=== PATIENT | female | born 1990 | race Caucasian/White ===

== ENCOUNTER 2018-02-16 11:42 | Emergency (ER) | payer MEDICAID, OTHER ==
[2018-02-16] MEDS ORDERED: ONDANSETRON 4 MG TAB.RAPDIS PO ONE (11:59)
[2018-02-16] MEDS ORDERED: RINGERS SOLUTION,LACTATED 1,000 ML IV ONE (11:59)
--- NOTE | 2018-02-16 12:02 | ER Document Report ---
ED Medical Screen (RME) - General Chief Complaint: Nausea/Vomiting Stated Complaint: WEAKNESS/URINE ISSUES Time Seen by Provider: 02/16/18 11:55 Notes: RAPID MEDICAL EVALUATION DISCLOSURE I have seen this patient as part of a Rapid Medical Evaluation and, if applicable, placed any initially appropriate orders. The patient will be seen and fully evaluated, including a full history and physical exam, by a provider ( in Main ED or Fast Track) when a room becomes available. 27-year-old female approximately 15 weeks gestation here with complaints of several days nausea vomiting bloody stools (described as black). She does not have any medication at home that she has been using. She has a history of hemorrhoids but no GI bleeding. She does not have any abdominal pain. She has vaginal discharge but states it has been her normal discharge throughout her . She has also been feeling depressed for several weeks and having thoughts of suicide but reports she does not have a plan and does not feel she would go through with it. She feels this way due to her "home life". TRAVEL OUTSIDE OF THE [place] IN LAST 30 DAYS: No - Related Data Allergies/Adverse Reactions: No Known Allergies Allergy (Unverified 05/17/15 20:36) Past Medical History Renal/ Medical History: Reports: Hx Ovarian Cysts Musculoskeltal Medical History: Reports Hx Musculoskeletal Deformity Psychiatric Medical History: Reports: Hx Bipolar Disorder, Hx Depression Past Surgical History: Reports: Hx Dilation and Curettage, Hx Inguinal Hernia, Hx Oral Surgery - Immunizations Immunizations up to date: Yes Hx Diphtheria, Pertussis, Tetanus Vaccination: Yes Physical Exam - Vital signs Vitals: Temp Pulse Resp BP Pulse Ox 98.7 F 85 18 124/74 97 02/16/18 11:48 02/16/18 11:48 02/16/18 11:48 02/16/18 11:48 02/16/18 11:48 Course - Vital Signs Vital signs: Temp Pulse Resp BP Pulse Ox 98.7 F 85 18 124/74 97 02/16/18 11:48 02/16/18 11:48 02/16/18 11:48 02/16/18 11:48 02/16/18 11:48 Doctor's Discharge - Discharge Referrals: L[facility] MD [Primary Care Provider] - Follow up as needed
[2018-02-16 12:48] LABS: ABSOLUTE EOSINOPHILS # (AUTO) 0.1 10^3/uL (0.0-0.6); ABSOLUTE LYMPHOCYTES (AUTO) 2.5 10^3/uL (0.5-4.7); ABSOLUTE MONOCYTES (AUTO) 0.6 10^3/uL (0.1-1.4); ABSOLUTE NEUT (AUTO) 8.2 10^3/uL (1.7-8.2); BASOPHILS % (AUTO) 0.3 % (0-2); EOSINOPHILS % (AUTO) 0.5 % (0-6); HEMATOCRIT 39.6 % (36.0-47.0); HEMOGLOBIN 14.4 g/dL (12.0-15.5); LYMPHOCYTES % (AUTO) 21.9 % (13-45); MEAN CORPUSCULAR HGB CONC 36.3 g/dL (32.0-36.0); MEAN CORPUSCULAR VOLUME 88 fl (80-97); MONOCYTES % (AUTO) 5.1 % (3-13); PLATELET COUNT 210 10^3/uL (150-450); SEGMENTED NEUTROPHILS % (AUTO) 72.2 % (42-78); TOTAL CELLS COUNTED % (AUTO) 100 %; WHITE BLOOD COUNT 11.4 10^3/uL (4.0-10.5)
[2018-02-16 13:02] LABS: ALANINE AMINOTRANSFERASE 15 U/L (9-52); ALBUMIN 4.2 g/dL (3.5-5.0); ALKALINE PHOSPHATASE 56 U/L (38-126); ANION GAP 10 (5-19); ASPARTATE AMINO TRANSFERASE 19 U/L (14-36); BILIRUBIN,DIRECT 0.3 mg/dL (0.0-0.4); BILIRUBIN,TOTAL 0.5 mg/dL (0.2-1.3); BLOOD UREA NITROGEN 11 mg/dL (7-20); CALCIUM 9.6 mg/dL (8.4-10.2); CARBON DIOXIDE 25 mmol/L (22-30); CHLORIDE 104 mmol/L (98-107); GLUCOSE 81 mg/dL (75-110); POTASSIUM 3.9 mmol/L (3.6-5.0); SODIUM 139.4 mmol/L (137-145); TOTAL PROTEIN 7.2 g/dL (6.3-8.2)
[2018-02-16 13:04] LABS: ACETAMINOPHEN < 10 ug/mL (10-30); ALCOHOL < 10 mg/dL (NONE DETECTED); SALICYLATE < 1.0 mg/dL (2.0-20.0)
[2018-02-16 15:07] LABS: APPEARANCE,URINE CLEAR; BILIRUBIN,URINE NEGATIVE (NEGATIVE); COLOR,URINE YELLOW; GLUCOSE, URINE NEGATIVE (NEGATIVE); KETONES,URINE 20 mg/dL (NEGATIVE); LEUKOCYTE ESTERASE,URINE MODERATE (NEGATIVE); NITRITE,URINE NEGATIVE (NEGATIVE); PROTEIN,URINE NEGATIVE (NEGATIVE); URINE SPECIFIC GRAVITY 1.021; UROBILINOGEN,URINE NEGATIVE mg/dL (<2.0)
[2018-02-16 15:28] LABS: URINE AMPHETAMINES SCREEN NEGATIVE; URINE BARBITURATES SCREEN NEGATIVE; URINE BENZODIAZEPINES SCREEN NEGATIVE; URINE COCAINE SCREEN NEGATIVE; URINE MARIJUANA (THC) SCREEN NEGATIVE; URINE METHADONE SCREEN NEGATIVE; URINE PHENCYCLIDINE SCREEN NEGATIVE
--- NOTE | 2018-02-16 15:47 | PSYCHOLOGICAL NOTE ---
Psych Note - Psych Note Psych Note: Reason for consult: Depression and suicidal ideation ( passive) Contact Permissions: None Eval: 3:05 pm Final Disposition: 4:00 pm Patient is a 27-year-old female. Patient reports that she was aware psych was going to come visit her. Patient reports that she just has a lot of stress at home due to living with her ex-boyfriend. Patient reports prior to finding out she was they were only dating for a short while then they broke up , following their break up 3 days later she found out she was . Patient reports that she lives in his home and recently (Thursday) he told her he hated her and made her move out of his bedroom and into a small bedroom in the house. Patient reports that they are going to a counseling center to try to work things out however he has been very demeaning telling her that everything is her fault and stating he does not want to be around her. Patient reports that she then told him she was going to go to [place] to live with her mom and get employment there. Patient reports that her boyfriend then said that she would be making the baby grow up empty without a father. Patient reports that the boyfriend wants to be a father but does not want to be with her and she feels if she sticks around and he sees her belly getting bigger that he will want to be with her, and when he sees the baby that he would want to work things out. Patient reports that her boyfriend is seeing his ex- girlfriend, and cheating on her. Patient reports that she is just confused because yesterday he was cuddling her and kissing her belly but then says they are not together. Patient reports she is a [facility] patient and was on a lot of medications for her bipolar but was weaned off of everything but Latuda. Patient reports Latuda then made her vomit so she was given Vistaril 10 mg daily. Patient reports she does not take that either because she ran out and it is not good for the baby. Patient reports that Dr. Ragini Anderson prescribes her medications. Patient reports she is taking parenting classes as well. Patient reports that she does have passive thoughts from time to time to harm herself but says that thoughts of her mom stops her from acting out self- harm. Patient reports she does not have suicidal ideation or homicidal ideation ideation at this time. Patient reports she has never attempted suicide. Patient reports that she is afraid of telling her boyfriend her mental health history like being bipolar and that she is currently feeling in a low point right now because she is afraid he will try to take the baby when the baby is born. Patient reports that when she was a teenager in 2003 her mother involuntarily committed her because she was having a lot of panic attacks and did not want to get help. Patient reports 2 other times she went inpatient psych for her panic attacks, stating these were voluntarily done to address anxiety. Patient reports that she gets anxious because she does not know if he is going to be nice to her or if he is having a bad day if he is going to be talking down to her. Patient reports she knows what she has to do but does not feel like she can because she does not want to leave him. Diagnosis: Per history ( patient report) 296.80 (F31.9) bipolar Disorder unspecified episode Medication recommendations made by [facility] contracted psychiatric provider Dr. Federico Md. includes: None Impression/Plan: Patient is psychiatrically cleared from acute services. Patient denied SI/HI. Clinician observed patient currently has a lot of environmental stresses including living in a home with her baby's father but not being in an intimate relationship. Clinician observed patient reports she has anxiety but is currently and unable to take medications she was previously prescribed prior to becoming . Clinician observed patient explained she is depressed however she is not tearful, has appropriate affect, mood ( during assessment) , and future oriented thinking. Clinician observed patient is scheduled for a counseling session at the local center ( per her report). In addition, recommendation for patient to go to [facility] as a walk - in to discuss medication concerns as they are the patient's clinical home. Attending physician in agreement with plan and disposition. Consulted with Dr. Tracy regarding management and care of patient.
[2018-02-16] MEDS ORDERED: NORMAL SALINE 1000 ML 1,000 ML IV ONE (15:55)
[2018-02-16] MEDS ORDERED: NITROFURANTOIN MONOHYD/M-CRYST 100 MG CAPSULE PO ONE (15:56)
[2018-02-16 17:44] VITALS: BP 104/62
--- NOTE | 2018-02-16 17:46 | RADIOLOGY REPORT (SQ) ---
EXAM DESCRIPTION: U/S OB 14+ TRNABD 1GES W/O DOP COMPLETED DATE/TIME: 02/16/2018 5:38 pm REASON FOR STUDY: pelvic pain COMPARISON: None. TECHNIQUE: Static and Dynamic grayscale imaging performed of gravid uterus using transabdominal appr oach. Additional selected color Doppler and spectral images recorded. All stored on PACS. LIMITATIONS: None. FINDINGS: EGA: 15 weeks 0 days. DALIA: 08/10/2018. DENA: Adequate amount. PLACENTA: Anterior. PRESENTATION: Variable ANATOMY: HEART RATE: 147 beats per minute. MATERNAL ADNEXA: Left ovary normal curve right ovary not visualized. CERVICAL LENGTH: 3.7 cm Closed. OTHER: No other significant finding. IMPRESSION: LIVING INTRAUTERINE . ESTIMATED GESTATIONAL AGE 15 WEEKS 0 DAYS. NO VISUALIZED ANOMALIES. Trimester of : Second trimester - 13 weeks 1 day to 27 weeks 6 days. TECHNICAL DOCUMENTATION: JOB ID: [id number] [employer]- All Rights Reserved Reading location - IP/workstation name: [email or web address]
[2018-02-16] MEDS ORDERED: LIDOCAINE 1% INJ-PF (10 MG/ML) 30 ML SDV INJ ONE (17:53)
--- NOTE | 2018-02-16 17:53 | ER Document Report ---
ED GI/ - General Chief Complaint: Nausea/Vomiting Stated Complaint: WEAKNESS/URINE ISSUES Time Seen by Provider: 02/16/18 11:55 Mode of Arrival: Ambulatory Information source: Patient Notes: Patient is a 27 year old female approximately 15 weeks who presents to the ER today for 2 weeks of nausea without vomiting, some lightheadedness and not been able to take in any fluids. Patient states that has worsened over the past 2 days. She is taking her vitamins. She denies any vaginal bleeding or abnormal vaginal discharge, admits to some lower abdominal pain in the center of her abdomen. She denies any burning with urination, fevers or chills. She denies any syncope. She last had an ultrasound [facility] 1 month ago that was normal. Apparently she also told the [facility] nurse that she has considered hurting herself. For this reason a psych consult was placed at triage and performed before a had time to evaluate the patient. Psych cleared the patient as she is not suicidal or homicidal, just not taking her bipolar medications as she is and sometimes feels depressed. She states "I would never hurt myself, I am too excited about the baby and I have a good support system with my mom." TRAVEL OUTSIDE OF THE [place] IN LAST 30 DAYS: No - HPI heart tones (bpm): 145 - Related Data Allergies/Adverse Reactions: No Known Allergies Allergy (Unverified 05/17/15 20:36) Past Medical History - General Information source: Patient - Social History Smoking Status: Never Smoker Chew tobacco use (# tins/day): No Frequency of alcohol use: None Drug Abuse: None Family History: Arthritis, CAD, CVA, DM, Hyperlipidemia, Hypertension Patient has suicidal ideation: Yes - states she wouldn't act on it Patient has homicidal ideation: No Renal/ Medical History: Reports: Hx Ovarian Cysts. Denies: Hx Peritoneal Dialysis Musculoskeltal Medical History: Reports Hx Musculoskeletal Deformity Psychiatric Medical History: Reports: Hx Bipolar Disorder, Hx Depression Past Surgical History: Reports: Hx Dilation and Curettage, Hx Inguinal Hernia, Hx Oral Surgery - Immunizations Immunizations up to date: Yes Hx Diphtheria, Pertussis, Tetanus Vaccination: Yes Review of Systems - Review of Systems Constitutional: No symptoms reported EENT: No symptoms reported Cardiovascular: No symptoms reported Respiratory: No symptoms reported Gastrointestinal: See HPI Genitourinary: No symptoms reported Female Genitourinary: See HPI Musculoskeletal: No symptoms reported Skin: No symptoms reported Hematologic/Lymphatic: No symptoms reported Neurological/Psychological: See HPI Physical Exam - Vital signs Vitals: Temp Pulse Resp BP Pulse Ox 98.7 F 85 20 124/74 97 02/16/18 11:48 02/16/18 11:48 02/16/18 11:48 02/16/18 11:48 02/16/18 11:48 - Notes Notes: PHYSICAL EXAMINATION: GENERAL: Well-appearing and in no acute distress. HEAD: Atraumatic, normocephalic. EYES: Pupils equal round and reactive to light, extraocular movements intact, sclera anicteric, conjunctiva are normal. ENT: ear canals without erythema or foreign body, TMs pearly quiñonez with good bony landmarks, nares patent, oropharynx clear without exudates. Moist mucous membranes. NECK: Normal range of motion, supple without lymphadenopathy LUNGS: CTAB and equal. No wheezes rales or rhonchi. HEART: Regular rate and rhythm without murmurs ABDOMEN: Soft, moderate suprapubic tenderness. No guarding, no rebound BACK: no vertebral tenderness, normal ROM GI/: no CVA tenderness EXTREMITIES: Normal range of motion, no pitting edema. No cyanosis. NEUROLOGICAL: Cranial nerves grossly intact. Normal sensory/motor exams. PSYCH: Normal mood, normal affect. SKIN: Warm, Dry, normal turgor, no rashes or lesions noted Course - Re-evaluation Re-evalutation: 02/16/18 19:10 heart tones are 147, ultrasound reveals a normal intrauterine of approximately 15 weeks gestation without acute abnormality. Lab work is unremarkable today except for some leukocytes and 6 white blood cells on her urinalysis. Patient be placed on Macrobid for increased risk of miscarriage with untreated urinary tract infection. Patient given 2 L of IV fluids and feels much better, wanting to eat after Zofran was given, able to hold down crackers and geneva deana. Patient follow-up with her [facility]. I will send her home on Macrobid and provide her with Reglan to try first and Zofran if the Reglan does not help. - Vital Signs Vital signs: Temp Pulse Resp BP Pulse Ox 98.8 F 77 18 104/62 99 02/16/18 17:43 02/16/18 17:43 02/16/18 17:43 02/16/18 17:43 02/16/18 17:43 - Laboratory Result Diagrams: 02/16/18 12:19 02/16/18 12:19 Laboratory results interpreted by me: 02/16/18 02/16/18 02/16/18 12:19 12:19 12:19 WBC 11.4 H MCHC 36.3 H Serum HCG, Qual POSITIVE H Urine Ketones Urine Blood Ur Leukocyte Esterase Urine Ascorbic Acid Salicylates < 1.0 L Acetaminophen < 10 L 02/16/18 14:40 WBC MCHC Serum HCG, Qual Urine Ketones 20 H Urine Blood SMALL H Ur Leukocyte Esterase MODERATE H Urine Ascorbic Acid 20 H Salicylates Acetaminophen Discharge - Discharge Clinical Impression: related nausea, antepartum UTI (urinary tract infection) Qualifiers: Urinary tract infection type: site unspecified Hematuria presence: without hematuria Qualified Code(s): N39.0 - Urinary tract infection, site not specified Condition: Stable Disposition: HOME, SELF-CARE Instructions: Nitrofurantoin ([facility]), Urinary Tract Infection ([facility]) Additional Instructions: Return immediately for any new or worsening symptoms. Follow up with [facility], call tomorrow to make followup appointment. Prescriptions: Ondansetron [Zofran Odt 4 mg Tablet] 1 - 2 tab PO Q4HP PRN #30 tab.rapdis PRN Reason: Metoclopramide HCl [Reglan 10 mg Tablet] 1 tab PO ASDIR PRN #30 tablet PRN Reason: Nitrofurantoin/Nitrofuran Mac [Macrobid 100 mg Capsule] 1 tab PO BID #14 capsule Forms: Return to Work Referrals: L[facility]ERN[facility] MD [ACTIVE STAFF] - Follow up as needed [facility] [Provider Group] - Follow up as needed
--- NOTE | 2018-02-16 22:10 | EKG REPORT ---
SEVERITY:- NORMAL ECG - SINUS RHYTHM : Confirmed by: Sarah Dasilva MD 16-Feb-2018 22:09:55
== END 2018-02-16 18:16 | disposition home or self-care (01) ==
LOC: ER 11:42
DX: O26.899 Other specified pregnancy related conditions, unspecified trimester (principal); R11.0 Nausea; R42 Dizziness and giddiness; O23.40 Unspecified infection of urinary tract in pregnancy, unspecified trimester; O99.340 Other mental disorders complicating pregnancy, unspecified trimester; F31.9 Bipolar disorder, unspecified; Z3A.00 Weeks of gestation of pregnancy not specified; Z79.899 Other long term (current) drug therapy; R10.30 Lower abdominal pain, unspecified
CPT/HCPCS: 93005; 99285; 96360; 96361; 36415; 80307 ×4; 84703; 85025; 80053; 81001; 76805; 93010; S0119; J7030; J7120; J3490; J8499

== ENCOUNTER 2018-03-15 11:22 | Emergency (ER) | payer MEDICAID ==
[2018-03-15] MEDS ORDERED: NORMAL SALINE 1000 ML 1,000 ML IV ONE (12:14)
--- NOTE | 2018-03-15 12:17 | ER Document Report ---
ED Medical Screen (RME) - General Chief Complaint: Syncope Stated Complaint: LIGHTHEADED/DIZZINESS Time Seen by Provider: 03/15/18 12:06 Mode of Arrival: Ambulatory Information source: Patient Notes: 27 yr old female 19 weeks presents with complaints of presyncopal episode dizziness while at work , pt noted tunnel vision, laid herself down, did not strike abdomen, I have greeted and performed a rapid initial assessment of this patient. A comprehensive ED assessment and evaluation of the patient, analysis of test results and completion of the medical decision making process will be conducted by additional ED providers. PHYSICAL EXAMINATION: GENERAL: Well-appearing, well-nourished and in no acute distress. HEAD: Atraumatic, normocephalic. EYES: Pupils equal round extraocular movements intact, conjunctiva are normal. ENT: Nares patent NECK: Normal range of motion LUNGS: No respiratory distress Musculoskeletal: Normal range of motion NEUROLOGICAL: Normal speech, normal gait. PSYCH: Normal mood, normal affect. SKIN: Warm, Dry, normal turgor, no rashes or lesions noted. TRAVEL OUTSIDE OF THE [place] IN LAST 30 DAYS: No - Related Data Allergies/Adverse Reactions: No Known Allergies Allergy (Unverified 05/17/15 20:36) Past Medical History - Social History Chew tobacco use (# tins/day): No Frequency of alcohol use: None Drug Abuse: None Renal/ Medical History: Reports: Hx Ovarian Cysts. Denies: Hx Peritoneal Dialysis Musculoskeltal Medical History: Reports Hx Musculoskeletal Deformity Psychiatric Medical History: Reports: Hx Bipolar Disorder, Hx Depression Past Surgical History: Reports: Hx Dilation and Curettage, Hx Gynecologic Surgery - d/c 2012, Hx Inguinal Hernia, Hx Oral Surgery - Immunizations Immunizations up to date: Yes Hx Diphtheria, Pertussis, Tetanus Vaccination: Yes Physical Exam - Vital signs Vitals: Temp Pulse Resp BP Pulse Ox 98.3 F 77 16 122/73 98 03/15/18 11:32 03/15/18 11:32 03/15/18 11:32 03/15/18 11:32 03/15/18 11:32 Course - Vital Signs Vital signs: Temp Pulse Resp BP Pulse Ox 98.3 F 77 16 122/73 98 03/15/18 11:32 03/15/18 11:32 03/15/18 11:32 03/15/18 11:32 03/15/18 11:32
--- NOTE | 2018-03-15 12:46 | EKG REPORT ---
SEVERITY:- NORMAL ECG - SINUS RHYTHM : Confirmed by: Antony Carpenter MD 15-Mar-2018 12:45:54
--- NOTE | 2018-03-15 13:35 | ER Document Report ---
ED Syncope and Near Syncope - General Chief Complaint: Syncope Stated Complaint: LIGHTHEADED/DIZZINESS Time Seen by Provider: 03/15/18 12:06 Mode of Arrival: Ambulatory Information source: Patient Notes: Patient is currently 19 weeks . Patient states that this afternoon she started to feel dizzy, weak and hot. Patient states that started to make her feel anxious and she had facial numbness in her teeth seem to be tingling. Patient states that she does have a history of anxiety and she was attempting to control her breathing so she did not hyperventilate. Patient presently complains of only a mild weak feeling but denies any dizziness, cough , fever, nausea vomiting or diarrhea. Patient denies any abdominal tenderness although states this morning she did have some cramping to the pelvic area. Patient denies any urinary symptoms. Patient denies any problems during her thus far. Patient does state that she has eaten breakfast as well as lunch today. TRAVEL OUTSIDE OF THE [place] IN LAST 30 DAYS: No - HPI Patient complains to provider of: Nearly fainting Episode witnessed (by whom): Yes Symptoms prior to episode: Abdominal pain - Early this morning, now resolved, Lightheaded. No: Chest pain, Fever, Headache, Short of breath Position/Activity at time of episode: Standing Quality of pain: Achy Severity: Mild Pain Level: Denies Context: Fackler faint, . denies: Incontinent of stool, Incontinent of urine, Lost consciousness, Recent immobilization, Recent seizures, Recent travel , Seizure activity observed Injury location: None Current symptoms: Weakness. denies: Abdominal pain, Back pain, Chest pain, Dizziness, Vomiting Similar symptoms previously: No Recently seen / treated by doctor: No - Related Data Allergies/Adverse Reactions: No Known Allergies Allergy (Unverified 05/17/15 20:36) Past Medical History - General Information source: Patient - Social History Smoking Status: Never Smoker Chew tobacco use (# tins/day): No Frequency of alcohol use: None Drug Abuse: None Occupation: assistant paralegal Lives with: Family Family History: Arthritis, CAD, CVA, DM, Hyperlipidemia, Hypertension Patient has suicidal ideation: No Patient has homicidal ideation: No Renal/ Medical History: Reports: Hx Ovarian Cysts. Denies: Hx Peritoneal Dialysis Musculoskeltal Medical History: Reports Hx Musculoskeletal Deformity Psychiatric Medical History: Reports: Hx Anxiety, Hx Bipolar Disorder, Hx Depression Past Surgical History: Reports: Hx Dilation and Curettage, Hx Gynecologic Surgery - d/c 2013, Hx Inguinal Hernia, Hx Oral Surgery - Immunizations Immunizations up to date: Yes Hx Diphtheria, Pertussis, Tetanus Vaccination: Yes Review of Systems - Review of Systems Constitutional: Weakness. denies: Fever, Recent illness EENT: No symptoms reported Cardiovascular: Lightheaded. denies: Chest pain Respiratory: No symptoms reported. denies: Cough, Short of breath Gastrointestinal: Abdominal pain. denies: Nausea, Vomiting Genitourinary: No symptoms reported. denies: Dysuria, Flank pain Female Genitourinary: . denies: Vaginal discharge, Vaginal bleeding Musculoskeletal: No symptoms reported. denies: Back pain Skin: No symptoms reported Hematologic/Lymphatic: No symptoms reported Neurological/Psychological: No symptoms reported. denies: Lost consciousness, Headaches Physical Exam - Vital signs Vitals: Temp Pulse Resp BP Pulse Ox 98.3 F 75 16 122/73 100 03/15/18 11:30 03/15/18 11:30 03/15/18 11:30 03/15/18 11:30 03/15/18 11:30 - General General appearance: Appears well, Alert In distress: None - HEENT Head: Normocephalic, Atraumatic Eyes: Normal Conjunctiva: Normal Nasal: Normal Mouth/Lips: Normal Mucous membranes: Normal Neck: Normal, Supple - Respiratory Respiratory status: No respiratory distress Chest status: Nontender Breath sounds: Normal. No: Rales, Rhonchi, Stridor, Wheezing Chest palpation: Normal - Cardiovascular Rhythm: Regular Heart sounds: S1 appreciated, S2 appreciated Murmur: No - Abdominal Inspection: Gravid female Distension: No distension Bowel sounds: Normal Tenderness: Nontender Organomegaly: No organomegaly - Back Back: Normal, Nontender. No: CVA tenderness - Extremities General upper extremity: Normal inspection, Nontender, Normal ROM General lower extremity: Normal inspection, Nontender, Normal ROM - Neurological Neuro grossly intact: Yes Cognition: Normal [place] Coma Scale Eye Opening: Spontaneous Araseli Coma Scale Verbal: Oriented Araseli Coma Scale Motor: Obeys Commands [place] Coma Scale Total: 15 - Psychological Associated symptoms: Normal affect, Normal mood - Skin Skin Temperature: Warm Skin Moisture: Dry Skin Color: Normal Course - Re-evaluation Re-evalutation: 03/15/18 15:02 Patient given juice and crackers. Patient denies complaints at this time. 03/15/18 Reviewed results of patient's ultrasound report. Patient reports feeling much improved after eating crackers, fruit cup and juice. Patient encouraged to stay well-hydrated and to eat regularly spaced meals with occasional snacks to avoid a drop in her blood sugar which could cause her symptoms she was experiencing today. Patient encouraged to follow-up with her [facility] provider tomorrow for recheck. Patient's abdomen is soft, nontender. Patient without any vaginal bleeding or discharge. Ultrasound report reviewed. - Vital Signs Vital signs: Temp Pulse Resp BP Pulse Ox 98.3 F 75 16 115/67 100 03/15/18 11:32 03/15/18 17:32 03/15/18 11:32 03/15/18 17:32 03/15/18 17:32 - Laboratory Result Diagrams: 03/15/18 13:19 03/15/18 13:19 Laboratory results interpreted by me: 03/15/18 03/15/18 03/15/18 13:19 13:19 13:19 WBC 10.9 H Hct 34.6 L Glucose 63 L Total Protein 5.8 L Albumin 3.4 L Urine Glucose (UA) 50 H Ur Leukocyte Esterase TRACE H Labs- Entire Visit 03/15/18 03/15/18 03/15/18 13:19 13:19 13:19 WBC 10.9 H RBC 3.82 Hgb 12.3 Hct 34.6 L MCV 91 MCH 32.2 MCHC 35.6 RDW 12.9 Plt Count 164 Seg Neutrophils % 70.0 Lymphocytes % 23.0 Monocytes % 6.1 Eosinophils % 0.6 Basophils % 0.3 Absolute Neutrophils 7.6 Absolute Lymphocytes 2.5 Absolute Monocytes 0.7 Absolute Eosinophils 0.1 Absolute Basophils 0.0 Sodium 139.4 Potassium 3.8 Chloride 106 Carbon Dioxide 26 Anion Gap 7 BUN 11 Creatinine 0.65 Est GFR ( Amer) > 60 Est GFR (Non-Af Amer) > 60 Glucose 63 L Calcium 8.8 Total Bilirubin 0.4 Direct Bilirubin 0.2 Neonat Total Bilirubin Not Reportable Neonat Direct Bilirubin Not Reportable Neonat Indirect Bili Not Reportable AST 14 ALT 16 Alkaline Phosphatase 43 Total Protein 5.8 L Albumin 3.4 L Urine Color YELLOW Urine Appearance CLEAR Urine pH 8.0 Ur Specific [place] 1.009 Urine Protein NEGATIVE Urine Glucose (UA) 50 H Urine Ketones NEGATIVE Urine Blood NEGATIVE Urine Nitrite NEGATIVE Urine Bilirubin NEGATIVE Urine Urobilinogen NEGATIVE Ur Leukocyte Esterase TRACE H Urine WBC (Auto) 2 Urine RBC (Auto) 0 Squamous Epi Cells Auto 1 Urine Mucus (Auto) RARE Urine Ascorbic Acid NEGATIVE Discharge - Discharge Clinical Impression: Hypoglycemia, Near syncope Qualifiers: Weeks of gestation: 19 weeks Qualified Code(s): Z3A.19 - 19 weeks gestation of Condition: Stable Disposition: HOME, SELF-CARE Instructions: Cephalexin ([facility]), Near Syncopal Episode ([facility]), Urinary Tract Infection ([facility]) Additional Instructions: Return immediately for any new or worsening symptoms Followup with your primary care provider, call tomorrow to make a followup appointment Stay well-hydrated and eat regular space meals with snacks in between. Prescriptions: Cephalexin Monohydrate [Keflex 500 mg Capsule] 500 mg PO BID 5 Days capsule Forms: Return to Work Referrals: [facility] [Provider Group] - Follow up tomorrow
[2018-03-15 13:52] LABS: APPEARANCE,URINE CLEAR; BILIRUBIN,URINE NEGATIVE (NEGATIVE); COLOR,URINE YELLOW; GLUCOSE, URINE 50 mg/dL (NEGATIVE); KETONES,URINE NEGATIVE (NEGATIVE); LEUKOCYTE ESTERASE,URINE TRACE (NEGATIVE); NITRITE,URINE NEGATIVE (NEGATIVE); PROTEIN,URINE NEGATIVE (NEGATIVE); URINE SPECIFIC GRAVITY 1.009; UROBILINOGEN,URINE NEGATIVE mg/dL (<2.0)
[2018-03-15 13:58] LABS: ABSOLUTE EOSINOPHILS # (AUTO) 0.1 10^3/uL (0.0-0.6); ABSOLUTE LYMPHOCYTES (AUTO) 2.5 10^3/uL (0.5-4.7); ABSOLUTE MONOCYTES (AUTO) 0.7 10^3/uL (0.1-1.4); ABSOLUTE NEUT (AUTO) 7.6 10^3/uL (1.7-8.2); BASOPHILS % (AUTO) 0.3 % (0-2); EOSINOPHILS % (AUTO) 0.6 % (0-6); HEMATOCRIT 34.6 % (36.0-47.0); HEMOGLOBIN 12.3 g/dL (12.0-15.5); MEAN CORPUSCULAR HEMOGLOBIN 32.2 pg (27.0-33.4); MEAN CORPUSCULAR HGB CONC 35.6 g/dL (32.0-36.0); MEAN CORPUSCULAR VOLUME 91 fl (80-97); MONOCYTES % (AUTO) 6.1 % (3-13); PLATELET COUNT 164 10^3/uL (150-450); RED BLOOD COUNT 3.82 10^6/uL (3.72-5.28); RED CELL DISTRIBUTION WIDTH 12.9 % (11.5-14.0); TOTAL CELLS COUNTED % (AUTO) 100 %; WHITE BLOOD COUNT 10.9 10^3/uL (4.0-10.5)
[2018-03-15 14:17] LABS: ALANINE AMINOTRANSFERASE 16 U/L (9-52); ALBUMIN 3.4 g/dL (3.5-5.0); ALKALINE PHOSPHATASE 43 U/L (38-126); ANION GAP 7 (5-19); ASPARTATE AMINO TRANSFERASE 14 U/L (14-36); BILIRUBIN,DIRECT 0.2 mg/dL (0.0-0.4); BILIRUBIN,TOTAL 0.4 mg/dL (0.2-1.3); BLOOD UREA NITROGEN 11 mg/dL (7-20); CALCIUM 8.8 mg/dL (8.4-10.2); CARBON DIOXIDE 26 mmol/L (22-30); CHLORIDE 106 mmol/L (98-107); GLUCOSE 63 mg/dL (75-110); POTASSIUM 3.8 mmol/L (3.6-5.0); SODIUM 139.4 mmol/L (137-145); TOTAL PROTEIN 5.8 g/dL (6.3-8.2)
[2018-03-15] MEDS ORDERED: CEPHALEXIN 500 MG CAPSULE PO ONE (17:05)
--- NOTE | 2018-03-15 17:18 | RADIOLOGY REPORT (SQ) ---
EXAM DESCRIPTION: U/S OB LIMITED COMPLETED DATE/TIME: 03/15/2018 3:25 pm REASON FOR STUDY: abd pain COMPARISON: OB ultrasound 02/16/2018 TECHNIQUE: Limited transabdominal grayscale ultrasound for evaluation of specific requested obstetri carol parameters. LIMITATIONS: None. FINDINGS: CERVICAL LENGTH: 2.5 cm Closed. DENA: 11.6 cm. FHR: 149 beats per minute. PRESENTATION: Cephalic. OTHER: Placenta anterior, grade 1. No abruption or previa. IMPRESSION: LIMITED OBSTETRICAL ULTRASOUND WITH MEASURED PARAMETERS DELINEATED ABOVE. Trimester of : Second trimester - 13 weeks 1 day to 27 weeks 6 days. TECHNICAL DOCUMENTATION: JOB ID: [id number] [employer]- All Rights Reserved Reading location - IP/workstation name: [email or web address]
[2018-03-15 17:35] VITALS: BP 115/67
== END 2018-03-15 17:35 | disposition home or self-care (01) ==
LOC: ER 11:22
DX: O99.282 Endocrine, nutritional and metabolic diseases complicating pregnancy, second trimester (principal); E16.2 Hypoglycemia, unspecified; O26.892 Other specified pregnancy related conditions, second trimester; R55 Syncope and collapse; R53.1 Weakness; Z3A.19 19 weeks gestation of pregnancy
CPT/HCPCS: 93005; 99284; 96360; 36415; 87086; 85025; 80053; 81001; 76815; 93010; J7030